=== PATIENT | male | born 1985 | race American Indian/Alaskan Native ===

== ENCOUNTER 2021-01-01 02:43 | Emergency (ER) | payer BC ==
[2021-01-01 02:55] VITALS: BP 137/93
[2021-01-01 03:21] LABS: Bilirubin,Urine NEG (Negative); Blood,Urine NEG (Negative); Color,Urine Amber (Yellow); Mucus,Urine 2+ /HPF
--- NOTE | 2021-01-01 03:57 | Emergency Department Report ---
ED Male HPI - General Chief complaint: Urogenital-Male Stated complaint: BLOOD IN URINE Time Seen by Provider: 01/01/21 03:00 Source: patient Mode of arrival: Ambulatory Limitations: No Limitations - History of Present Illness MD Complaint: dysuria (With some hematuria off and on for the for the past few days please may have urinary tract infection reports no suspicion for STD) -: Gradual Location: penis Radiation: none Quality: burning Consistency: intermittent Improves with: none, urination Worsens with: none blood in urine. denies: discharge, swelling, urinary retention, fever, nausea/vomiting - Related Data Previous Rx's Medication Instructions Recorded Last Taken Type Doxycycline Hyclate [Doxycycline 100 mg PO Q12HR #20 tab 01/01/21 Unknown Rx Hyclate TAB] metroNIDAZOLE [Flagyl] 2,000 mg PO ONCE #4 tab 01/01/21 Unknown Rx Allergies Allergy/AdvReac Type Severity Reaction Status Date / Time No Known Allergies Allergy Unverified 01/01/21 02:56 ED Review of Systems ROS: Stated complaint: BLOOD IN URINE Other details as noted in HPI Comment: All other systems reviewed and negative ED Past Medical Hx - Past Medical History Previous Medical History?: Yes Hx Diabetes: (Borderline) - Surgical History Past Surgical History?: No - Social History Smoking Status: Current Every Day Smoker Substance Use Type: None - Medications Home Medications: Home Medications Medication Instructions Recorded Confirmed Last Taken Type Doxycycline Hyclate [Doxycycline 100 mg PO Q12HR #20 tab 01/01/21 Unknown Rx Hyclate TAB] metroNIDAZOLE [Flagyl] 2,000 mg PO ONCE #4 tab 01/01/21 Unknown Rx ED Physical Exam - General Limitations: No Limitations General appearance: alert, in no apparent distress - Head Head exam: Present: atraumatic, normocephalic - Eye Eye exam: Present: normal appearance - ENT ENT exam: Present: mucous membranes moist - Neck Neck exam: Present: normal inspection - Respiratory Respiratory exam: Present: normal lung sounds bilaterally. Absent: respiratory distress - Cardiovascular Cardiovascular Exam: Present: regular rate, normal rhythm. Absent: systolic murmur, diastolic murmur, rubs, gallop - GI/Abdominal GI/Abdominal exam: Present: soft, normal bowel sounds - Rectal Rectal exam: Present: deferred - Extremities Exam Extremities exam: Present: normal inspection - Back Exam Back exam: Present: normal inspection - Neurological Exam Neurological exam: Present: alert, oriented X3 - Psychiatric Psychiatric exam: Present: normal affect, normal mood - Skin Skin exam: Present: warm, dry, intact, normal color. Absent: rash ED Course Vital Signs 01/01/21 01/01/21 02:49 03:58 Temperature 98.3 F Pulse Rate 114 H 88 Respiratory 18 Rate Blood Pressure 137/93 O2 Sat by Pulse 96 Oximetry ED Medical Decision Making - Lab Data Lab Results 01/01/21 Range/Units Unknown Urine Color Ruthann (Yellow) Urine Turbidity Cloudy (Clear) Urine pH 5.0 (5.0-7.0) Ur Specific Mellette 1.027 (1.003-1.030) Urine Protein 100 mg/dl (Negative) mg/dL Urine Glucose (UA) Neg (Negative) mg/dL Urine Ketones Neg (Negative) mg/dL Urine Blood Neg (Negative) Urine Nitrite Neg (Negative) Urine Bilirubin Neg (Negative) Urine Urobilinogen 2.0 (<2.0) mg/dL Ur Leukocyte Esterase Tr (Negative) Urine WBC (Auto) 41.0 H (0.0-6.0) /HPF Urine RBC (Auto) 4.0 (0.0-6.0) /HPF U Epithel Cells (Auto) 6.0 (0-13.0) /HPF Urine Mucus 2+ /HPF Critical care attestation.: If time is entered above; I have spent that time in minutes in the direct care of this critically ill patient, excluding procedure time. ED Disposition Clinical Impression: Dysuria, UTI (urinary tract infection) Disposition: - TO HOME OR SELFCARE Is pt being admited?: No Does the pt Need Aspirin: No Condition: Stable Instructions: Urinary Tract Infection, Adult, Dysuria Prescriptions: Doxycycline Hyclate [Doxycycline Hyclate TAB] 100 mg PO Q12HR #20 tab metroNIDAZOLE [Flagyl] 2,000 mg PO ONCE #4 tab Referrals: [facility] [Outside] - 3-5 Days
== END 2021-01-01 04:00 | disposition home or self-care (01) ==
LOC: ED 02:43
DX: N39.0 Urinary tract infection, site not specified (principal); R30.0 Dysuria; E11.9 Type 2 diabetes mellitus without complications; F17.200 Nicotine dependence, unspecified, uncomplicated; Z79.899 Other long term (current) drug therapy
CPT/HCPCS: 81001; 87086

== ENCOUNTER 2021-07-08 17:26 | Emergency (ER) | payer BC ==
[2021-07-08 18:28] VITALS: BP 133/84
== END 2021-07-08 20:30 ==
LOC: ED 17:26
DX: M54.5 Low back pain (principal); Z53.21 Procedure and treatment not carried out due to patient leaving prior to being seen by health care provider

== ENCOUNTER 2021-07-09 09:41 | Emergency (ER) | payer BC ==
[2021-07-09 10:58] VITALS: BP 139/94
--- NOTE | 2021-07-09 17:36 | Emergency Department Report ---
ED Back Pain/Injury HPI - General Chief Complaint: Back Pain/Injury Stated Complaint: LOWER BCK PAIN Time Seen by Provider: 07/09/21 17:32 Source: patient Limitations: No Limitations - History of Present Illness Initial Comments: 36-year-old -[place] male presents to the emergency room complaining of lower back pain x2 days. Patient denies any trauma to his back. 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 He denies any urinary symptoms last bowel movement was yesterday normal. He had this before in the past he states that he was given some pain medicine and is starting to improve. States has been taken Advil last dose was today about 1130. He denies any radiation of pain. Patient does not have a primary care provider. MD Complaint: back pain Onset/Timin -: days(s) Similar Symptoms Previously: Yes Place: home Radiation: none Severity: moderate Improves With: none - Related Data Previous Rx's Medication Instructions Recorded Last Taken Type Doxycycline Hyclate [Doxycycline 100 mg PO Q12HR #20 tab 01/01/21 Unknown Rx Hyclate TAB] metroNIDAZOLE [Flagyl] 2,000 mg PO ONCE #4 tab 01/01/21 Unknown Rx Diclofenac Sodium 75 mg PO BID #20 tablet. 07/09/21 Unknown Rx traMADoL [Ultram 50 MG tab] 50 mg PO Q6HR PRN #12 tablet 07/09/21 Unknown Rx Allergies Allergy/AdvReac Type Severity Reaction Status Date / Time No Known Allergies Allergy Verified 07/09/21 10:58 ED Review of Systems ROS: Stated complaint: LOWER BCK PAIN Other details as noted in HPI ED Past Medical Hx - Past Medical History Hx Diabetes: (Borderline) - Social History Smoking Status: Current Every Day Smoker Substance Use Type: None - Medications Home Medications: Home Medications Medication Instructions Recorded Confirmed Last Taken Type Doxycycline Hyclate [Doxycycline 100 mg PO Q12HR #20 tab 01/01/21 Unknown Rx Hyclate TAB] metroNIDAZOLE [Flagyl] 2,000 mg PO ONCE #4 tab 01/01/21 Unknown Rx Diclofenac Sodium 75 mg PO BID #20 tablet. 07/09/21 Unknown Rx traMADoL [Ultram 50 MG tab] 50 mg PO Q6HR PRN #12 tablet 07/09/21 Unknown Rx ED Physical Exam - General Limitations: No Limitations General appearance: alert, in no apparent distress - Head Head exam: Present: atraumatic, normocephalic - Eye Eye exam: Present: normal appearance - ENT ENT exam: Present: mucous membranes moist - Neck Neck exam: Present: normal inspection - Respiratory Respiratory exam: Present: normal lung sounds bilaterally. Absent: respiratory distress - Cardiovascular Cardiovascular Exam: Present: regular rate, normal rhythm. Absent: systolic murmur, diastolic murmur, rubs, gallop - GI/Abdominal GI/Abdominal exam: Present: soft, normal bowel sounds - Rectal Rectal exam: Present: deferred - Extremities Exam Extremities exam: Present: normal inspection - Back Exam Back exam: Present: normal inspection, tenderness, paraspinal tenderness. Absent: rash noted - Neurological Exam Neurological exam: Present: alert, oriented X3, normal gait - Psychiatric Psychiatric exam: Present: normal affect, normal mood - Skin Skin exam: Present: warm, dry, intact, normal color. Absent: rash ED Course Vital Signs 07/09/21 10:58 Temperature 98.8 F Pulse Rate 100 H Respiratory 20 Rate Blood Pressure 139/94 [Left] O2 Sat by Pulse 98 Oximetry ED Medical Decision Making - Medical Decision Making 36-year-old -[place] male presents to the emergency room complaining of lower back pain x2 days. Patient denies any trauma to his back. 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 He denies any urinary symptoms last bowel movement was yesterday normal. He had this before in the past he states that he was given some pain medicine and is starting to improve. States has been taken Advil last dose was today about 1130. He denies any radiation of pain. Patient does not have a primary care provider. Patient is given a Toradol injection of 30 mg IM. Patient be discharged home on tramadol and diclofenac's. Critical care attestation.: If time is entered above; I have spent that time in minutes in the direct care of this critically ill patient, excluding procedure time. ED Disposition Clinical Impression: Lower back pain Disposition: 01 HOME / SELF CARE / HOMELESS Is pt being admited?: No Does the pt Need Aspirin: No Condition: Stable Additional Instructions: Please take pain medication as prescribed. Do not operate heavy machinery while taking tramadol. Increase your fluid intake. Warm heat to your back will help. Prescriptions: Diclofenac Sodium 75 mg PO BID #20 tablet. traMADoL [Ultram 50 MG tab] 50 mg PO Q6HR PRN #12 tablet PRN Reason: Pain Referrals: PRIMARY CAREMD [Primary Care Provider] - 3-5 Days NANNETTE ROBB MD [Staff Physician] - 3-5 Days Forms: Work/School Release Form(ED) Time of Disposition: 17:49
[2021-07-09] MEDS ORDERED: KETOROLAC 30 MG/1 ML INJ IM ONE (17:37)
== END 2021-07-09 18:05 | disposition home or self-care (01) ==
LOC: ED 09:41
DX: M54.5 Low back pain (principal); F17.200 Nicotine dependence, unspecified, uncomplicated; Z79.899 Other long term (current) drug therapy
CPT/HCPCS: 96372; 99281; J1885